=== PATIENT | male | born 1955 | race Caucasian/White ===

== ENCOUNTER 2017-09-04 10:07 | Emergency (ER) | payer BC ==
--- NOTE | 2017-09-04 10:49 | RAD ---
INDICATION: Chest pain. COMPARISON: Comparison is made with a prior chest x-ray study from August 10, 2011. TECHNIQUE: A portable view of the chest was obtained. FINDINGS: Cardiac and mediastinal contours appear to be within normal limits. The lungs are clear. No pleural effusion is seen. IMPRESSION: NO EVIDENCE FOR ACUTE DISEASE.
[2017-09-04 10:58] LABS: ABS Basophils 0.1 10^3/ul (0-0.2); ABS Eosinophils 0.1 10^3/ul (0-0.6); ABS Lymphocytes 1.4 10^3/ul (1.0-4.8); ABS Monocytes 0.5 10^3/ul (0-0.8); ABS Neutrophils 3.9 10^3/ul (1.5-7.7); ABS Nucleated RBC 0 10^3/ul; Eosinophil % 1.9 % (0-6); Hematocrit 44 % (42-52); Lymphocyte % 23.7 % (25-47); Mean Corpuscular HGB Conc 34 g/dl (31-36); Mean Corpuscular Hemoglobin 32 pg (27-31); Mean Corpuscular Volume 95 fL (80-94); Mean Platelet Volume 7.7 um3 (7.4-10.4); Nucleated Red Blood Cells % 0; Platelet Count 198 10^3/ul (150-450); Red Blood Count 4.68 10^6/ul (4.0-5.4); Red Cell Distribution Width 14 % (10.5-15)
[2017-09-04 11:04] LABS: INR 0.86 (0.77-1.02)
[2017-09-04 11:15] LABS: EGFR Non-African American 71.8 (>60)
[2017-09-04 12:30] LABS: Urine Appearance Clear; Urine Blood Negative (Negative); Urine Color Yellow; Urine Ketones Negative (Negative); Urine Protein Negative (Negative); Urine Specific Gravity 1.005 (1.010-1.030); Urine Urobilinogen Negative (Negative)
[2017-09-04 16:27] VITALS: BP 129/74
--- NOTE | 2017-09-06 10:56 | ED ---
Filemon Brito Angela, scribed for Willis Perry MD on 09/04/17 at 1022 . HPI Chest Pain - HPI Summary HPI Summary: This pt is a 61 y/o male presenting to [facility] c/o SOB and chest pain. Pt reports his SOB has become worse over the past few days, he states he has dyspnea from just bending down to tie his shoe laces. Pt notes he becomes SOB with minimal exertion. Denies fever, chills, nausea, vomiting, cough. He is followed up by Dr. Wilkinson. Pt had a stress test on 08/10/17 but he states he was unable to finish it due to chronic knee discomfort, therefore he had a pharmacologic stress test which resulted negative. Pt also had an echocardiogram on 08/17/17. He was sent to the ED today from pulmonary testing for persistent SOB and unclear false negative stress test or false negative D-dimer, per Dr. Wilkinson. Pt is on nitroglycerin patches. PMHx includes MT in 2006 and s/p stent in 2014, osteoarthritis. - History of Current Complaint Chief Complaint: EDChestPainROMI Time Seen by Provider: 09/04/17 10:18 Hx Obtained From: Patient Onset/Duration: Started Days Ago, Still Present Timing: Lasting Days Current Severity: Moderate Pain Intensity: 6 Pain Scale Used: 0-10 Numeric Chest Pain Location: Diffuse Chest Pain Radiates: No Character: Dyspnea at Exertion Aggravating Factor(s): Nothing Alleviating Factor(s): Nothing Associated Signs and Symptoms: Positive: Chest Pain, Shortness of Breath. Negative: Fever, Chills, Nausea, Cough, Vomiting - Allergy/Home Medications Allergies/Adverse Reactions: Allergies Allergy/AdvReac Type Severity Reaction Status Date / Time No Known Allergies Allergy Verified 08/29/17 08:53 Home Medications: Home Medications Aspirin EC TAB* [Ecotrin EC Low Dose 81 MG*] 81 mg PO DAILY 09/04/17 [History Confirmed 09/04/17] Nitroglycerin 0.2 MG/HR PATCH* [Nitroglycerin 5 MG PATCH*] 1 patch TRANSDERM DAILY 09/04/17 [History Confirmed 09/04/17] PMH/Surg Hx/FS Hx/Imm Hx Endocrine/Hematology History: Denies: Hx Diabetes, Hx Thyroid Disease Cardiovascular History: Reports: Hx Myocardial Infarction - in 2007, Other Cardiovascular Problems/Disorders - s/p stent in 2015 Denies: Hx Congestive Heart Failure, Hx Hypertension Respiratory History: Denies: Hx Asthma, Hx Chronic Obstructive Pulmonary Disease (COPD) GI History: Denies: Hx Ulcer History: Denies: Hx Dialysis, Hx Renal Disease - Surgical History Surgery Procedure, Year, and Place: cardiac stent ,back,right wrist,right shoulder, left knee, right hip Infectious Disease History: No Infectious Disease History: Denies: Hx Hepatitis, Hx Human Immunodeficiency Virus (HIV), Traveled Outside the [place] in Last 30 Days - Family History Known Family History: Positive: Cardiac Disease Negative: Hypertension, Diabetes Family History: CA. - Social History Alcohol Use: None Substance Use Type: Reports: None Smoking Status (MU): Never Smoked Tobacco Review of Systems Positive: Fever - low grade Positive: Chest Pain Positive: Shortness Of Breath Musculoskeletal: Negative Skin: Negative Neurological: Negative All Other Systems Reviewed And Are Negative: Yes Physical Exam - Summary Physical Exam Summary: VITAL SIGNS: Reviewed. GENERAL: Patient is a well-developed and nourished male who is lying comfortable in the stretcher. Patient is not in any acute respiratory distress. HEAD AND FACE: No signs of trauma. No ecchymosis, hematomas or skull depressions. No sinus tenderness. EYES: PERRLA, EOMI x 2, No injected conjunctiva, no nystagmus. EARS: Hearing grossly intact. Ear canals and tympanic membranes are within normal limits. MOUTH: Oropharynx within normal limits. NECK: Supple, trachea is midline, no adenopathy, no JVD, no carotid bruit, no c- spine tenderness, neck with full ROM. CHEST: Symmetric, no tenderness at palpation LUNGS: Clear to auscultation bilaterally. No wheezing or crackles. CVS: Regular rate and rhythm, S1 and S2 present, no murmurs or gallops appreciated. ABDOMEN: Soft, non-tender. No signs of distention. No rebound no guarding, and no masses palpated. Bowel sounds are normal. EXTREMITIES: FROM in all major joints, no edema, no cyanosis or clubbing. NEURO: Alert and oriented x 3. No acute neurological deficits. Speech is normal and follows commands. SKIN: Dry and warm Triage Information Reviewed: Yes Vital Signs On Initial Exam: Initial Vitals Temp Pulse Resp BP Pulse Ox 99.1 F 82 17 142/87 97 09/04/17 10:12 09/04/17 10:12 09/04/17 10:12 09/04/17 10:12 09/04/17 10:12 Vital Signs Reviewed: Yes Diagnostics - Vital Signs Vital Signs Temp Pulse Resp BP Pulse Ox 09/04/17 10:12 99.1 F 82 17 142/87 97 - Laboratory Result Diagrams: 09/04/17 10:43 09/04/17 10:43 Lab Statement: Any lab studies that have been ordered have been reviewed, and results considered in the medical decision making process. - Radiology Chest XR Xray Interpretation: No Acute Changes - IMPRESSION: No evidence for acute disease. Dr. Perry has reviewed this radiology report. Radiology Interpretation Completed By: Radiologist - EKG 10:12 Cardiac Rate: NL EKG Rhythm: Sinus Rhythm - at 77 bpm EKG Interpretation: No ST elevations. EKG Comparison: No Significant Change - similar to prior EKG on 08/14/11. 13:15 Cardiac Rate: NL EKG Rhythm: Sinus Rhythm - at 71 bpm Ectopy: PVCs EKG Interpretation: No ST elevations Re-Evaluation - Re-Evaluation First Eval Re-Evaluation Time: 15:07 Comment: I reviewed the lab and XR results with the pt and . We are waiting for Dr. Laboy's call. Second Eval Re-Evaluation Time: 15:42 Comment: I discussed Dr. Laboy's recommendations with the pt and . Pt will be discharged home. Chest Pain Course/Dx - Course Assessment/Plan: This pt is a 61 y/o male presenting to [facility] c/o SOB and chest pain. Pt reports his SOB has become worse over the past few days, he states he has dyspnea from just bending down to tie his shoe laces. Pt notes he becomes SOB with minimal exertion. Denies fever, chills, nausea, vomiting, cough. He is followed up by Dr. Wilkinson. Pt had a stress test on 08/10/17 but he states he was unable to finish it due to chronic knee discomfort, therefore he had a pharmacologic stress test which resulted negative. Pt also had an echocardiogram on 08/17/17. He was sent to the ED today from pulmonary testing for persistent SOB and unclear false negative stress test or false negative D- dimer, per Dr. Wilkinson. Pt is on nitroglycerin patches. PMHx includes MT in 2007 and s/p stent in 2015, osteoarthritis. Test results without any significant abnormalities. Two troponins, 4 hours apart, are both negative. Urinalysis is negative for UTI. Chest XR: No evidence for acute disease. EKG shows normal sinus rhythm without ST elevations. D-dimer is negative therefore I did not order a CTA. I discussed pt care with Dr. Laboy, wardrobe custodian, who agrees to not do a CTA today and for the pt to be discharged home and follow up with Dr. Wilkinson as an outpatient. Therefore he will be discharged to home with follow up from Dr. Wilkinson. I discussed all the findings and test results with the patient. All questions were answered to patient satisfaction. There were no further complaints or concerns. He is instructed to return to the ED for any worsening or new symptoms. Pt is hemodynamically stable, alert and oriented x3. - Diagnoses Provider Diagnoses: Chest pain, Shortness of breath - Provider Notifications Discussed Care Of Patient With: Nilay Laboy Time Discussed With Above Provider: 15:11 Instructed by Provider To: Other - I discussed pt care with Dr. Laboy, wardrobe custodian, who will call back. [15:24] Dr. Laboy reports the pt can be discharged home with outpatient follow up with Dr. Wilkinson. Discharge - Sign-Out/Discharge Documenting (check all that apply): Discharge - discharge to home - Discharge Plan Condition: Stable Disposition: HOME Patient Education Materials: Chest Pain (ED), Shortness of Breath (ED) Referrals: Froilan Wilkinson MD [Medical Doctor] - Aguila LONGORIA,SWATI Rawls [Primary Care Provider] - Additional Instructions: Please follow up with Dr. Wilkinson. RETURN TO THE ED FOR ANY NEW OR WORSENING SYMPTOMS. The documentation as recorded by the Filemon parikh Angela accurately reflects the service I personally performed and the decisions made by , Willis Perry MD.
== END 2017-09-04 16:26 | disposition home or self-care (01) ==
LOC: ED 10:07
DX: R07.89 Other chest pain (principal); R06.02 Shortness of breath; R50.9 Fever, unspecified; I25.2 Old myocardial infarction; Z95.5 Presence of coronary angioplasty implant and graft; Z79.82 Long term (current) use of aspirin
CPT/HCPCS: 36415; 71045; 80053; 81003; 82550; 82553; 83605; 83735; 83880; 84443; 84484; 85025; 85379; 85610; 85730; 93005; 99283

== ENCOUNTER → 2017-12-18 08:12 | Day surgery (SDC) | payer OTHER ==
[~2017-12-18 08:12] MED LIST: Heparin 2 UNITS/ML IVPREMIX* 1,000 ML IV ONE; Heparin 2 UNITS/ML IVPREMIX* 2,000 ML IV ONE; Heparin(*) 1000 UNIT/ML 10 ML VIAL CATH LAB IV ONE; Iohexol 350 (CONTRAST) 200 ML MDV IV ONE; Lidocaine 1% INJ* 10 MG/ML 30 ML SDV ONE; Midazolam* 1 MG/ML 10 ML VIAL (10 MG) ONE; Midazolam* 1 MG/ML 5 ML VIAL (5 MG) ONE; NS 0.9% 1000 ML* 1,000 ML IV SCH; VERAPAMIL 2.5 MG/ML 2 ML VIAL ** 5 mg/2 ml ONE; fentaNYL* 50 MCG/ML 2 ML VIAL (100 MCG VIAL) ONE; nitroGLYCERIN DRIP* 25,000 MCG/250 ML BTL ONE
[2017-12-18 14:10] VITALS: BP 125/83
--- NOTE | 2017-12-19 00:37 | CATH ---
CC: Dr. Jean; Dr. Wilkinson; Dr. Bhat * CARDIAC CATHETERIZATION REPORT: DATE OF CATHETERIZATION: 12/18/17 - [facility] CATH PRIMARY CARE PHYSICIAN: Dr. Jean. HORSERADISH MAKER: Dr. Wilkinson. SPOOL CLEANER HAND: Dr. Bhat. PROCEDURES: Right radial artery access, right heart catheterization via the right antecubital, bilateral selective coronary cineangiography, left heart catheterization, and left ventriculography. HISTORY: A 62-year-old obese male with chronic lung disease, recent limiting exertional dyspnea with negative cardiac noninvasive testing. He has a history of remote diagonal branch stenting in [place]. He is referred for coronary angiography as he has persisted with progressive dyspnea, functional class 2-3 in spite of treatment for his lung disease, with discrepancy between his functional capacity and his noninvasive testing. Right heart catheterization was planned to rule out pulmonary hypertension. PROCEDURE ACCESS: Right radial artery sheath 6F slender. The hydrophilic microwire was used to exchange the right antecubital IV for a 5-Turkish sheath, which was then used to perform right heart catheterization. DIAGNOSTIC CATHETER: 5F [place], 5F TIG4, 5F pigtail. Resting pressures with normal arterial saturation in the 90s, RA mean 17, RV 35/ 14- 17, wedge mean 20, PA 36/21, mean 27. There was no mitral valve gradient with ensuring good wedge recording. LVEDP was 19-20. ANGIOGRAPHY: There is scattered calcification of the left coronary system. Left main: The left main has no stenosis. LAD: The LAD has minor luminal irregularity, supplies a moderate first diagonal , which has a previously implanted stent, which is widely patent. The LAD has no stenosis. This extends to the apex. Circumflex: The circumflex is moderate, nondominant with a single marginal branch. The circumflex has no stenosis. RCA: The RCA is dominant, moderate, supplies a moderate PDA and larger posterolateral. It has no significant stenosis. LV gram: LV systolic function is normal, there is no mitral regurgitation. Estimated LVEF 55%. CONCLUSION: 1. No obstructive coronary artery disease, patent diagonal branch, prior stent. 2. Normal LV systolic function. 3. Mild pulmonary venous hypertension with hemodynamics consistent with diastolic heart failure. He will be started on diuresis. He is encouraged to use his nighttime oxygen, which he apparently has been lax about doing. Successful right radial artery access. [id number]/[facility] #: [id number] [facility]
== END | disposition home or self-care (01) ==
LOC: CHICATH 08:12
PROVIDERS: ATTEND Internal Medicine Cardiovascular Disease
DX: R06.09 Other forms of dyspnea (principal); I25.10 Atherosclerotic heart disease of native coronary artery without angina pectoris; I25.2 Old myocardial infarction; R07.9 Chest pain, unspecified; Z95.5 Presence of coronary angioplasty implant and graft; I27.20 Pulmonary hypertension, unspecified; I50.30 Unspecified diastolic (congestive) heart failure; I10 Essential (primary) hypertension; J44.9 Chronic obstructive pulmonary disease, unspecified; G47.33 Obstructive sleep apnea (adult) (pediatric); R00.2 Palpitations
CPT/HCPCS: 93005; 93460; 99156; 99157; C1887; J1644; J2250; J3010

== ENCOUNTER 2018-02-08 13:07 | Day surgery (SDC) | payer MEDICAID, OTHER ==
[~2018-02-08 13:07] MED LIST changes: +Buffered Lidocaine 0.9% SYRIN* 5 ML/SYR SYRINGE INTRADERM ONE; +Famotidine IV* 10 MG/ML 2 ML (20 mg) IV ONE; -Heparin 2 UNITS/ML IVPREMIX* 1,000 ML IV ONE; -Heparin 2 UNITS/ML IVPREMIX* 2,000 ML IV ONE; -Heparin(*) 1000 UNIT/ML 10 ML VIAL CATH LAB IV ONE; -Iohexol 350 (CONTRAST) 200 ML MDV IV ONE; -Lidocaine 1% INJ* 10 MG/ML 30 ML SDV ONE; -Midazolam* 1 MG/ML 10 ML VIAL (10 MG) ONE; -Midazolam* 1 MG/ML 5 ML VIAL (5 MG) ONE; -NS 0.9% 1000 ML* 1,000 ML IV SCH; -VERAPAMIL 2.5 MG/ML 2 ML VIAL ** 5 mg/2 ml ONE; -fentaNYL* 50 MCG/ML 2 ML VIAL (100 MCG VIAL) ONE; -nitroGLYCERIN DRIP* 25,000 MCG/250 ML BTL ONE
[2018-02-08] MEDS ORDERED: ceFAZolin 2 GM in NS PREMIX(*) 2 GM/100 ML BAG IVPB ONE (13:12)
[2018-02-08] MEDS ORDERED: Famotidine IV* 10 MG/ML 2 ML (20 mg) ONE (13:18)
[2018-02-08] MEDS ORDERED: Midazolam* 1 MG/ML 5 ML VIAL (5 MG) ONE (16:55)
[2018-02-08] MEDS ORDERED: KETAMINE HCL* 50 MG/ML 10 ML VIAL ONE (16:55)
[2018-02-08] MEDS ORDERED: fentaNYL* 50 MCG/ML 2 ML VIAL (100 MCG VIAL) ONE (16:55)
[2018-02-08] MEDS ORDERED: oxyCODONE TAB* 5 MG TAB PO PRN (16:57)
[2018-02-08] MEDS ORDERED: Levalbuterol 0.63MG/3ML NEB* UNIT OF USE INH PRN (16:57)
[2018-02-08] MEDS ORDERED: Naloxone* 0.4 MG/ML 1 ML VIAL IV PRN (16:57)
[2018-02-08] MEDS ORDERED: HYDROmorphone INJ1* 1 MG/ML SYRINGE IV PRN (16:57)
[2018-02-08] MEDS ORDERED: Acetaminophen TAB* 325 MG PO PRN (16:57)
[2018-02-08] MEDS ORDERED: DiMENhydriNATE IV* 50 MG/ML VIAL IV PUSH PRN (16:57)
[2018-02-08] MEDS ORDERED: Bupivacaine 0.25% EPI 200,000* 30 ML SDV ONE (18:46)
[2018-02-08] MEDS ORDERED: Propofol* 10 MG/ML 20 ML BTL IV PUSH ONE (19:41)
[2018-02-08 20:47] VITALS: BP 155/84
--- NOTE | 2018-02-09 07:11 | RAD ---
INDICATION: Removal of hardware left knee intraoperative guidance. COMPARISON: Comparison is made with a prior x-ray study of the left knee from August 01, 2017. TECHNIQUE: 6.7 seconds of intermittent fluoroscopic guidance were provided and 2 spot films of the left knee were obtained in the operating room. FINDINGS: The films demonstrate interval removal of a surgical screw which was present in the lateral metaphysis of the femur. IMPRESSION: INTRAOPERATIVE CONTROL FILMS. CPT II Codes: G9500
--- NOTE | 2018-02-10 22:23 | OP ---
OPERATIVE NOTE: DATE OF OPERATION: 02/08/18 DATE OF : 55 SURGEON: Ryland Tomas MD POLYSOMNOGRAPHIC TECHNOLOGIST: DANA Stearns A physician operator assistant i cementing was required for the length of the procedure for assistance with the patient po sitioning, retraction, and closure. This was deeper than your standard removal of hardware procedure , procedure that is of not reimbursed, but this did require an operator assistant i cementing more than most of these proc edures. ANESTHESIOLOGIST: Dr. Blanca Vincent. ANESTHESIA: Monitored anesthesia care with sedation as well as local anesthetic, 20 cc of 0.25% Ponce tess with epinephrine prior to the start of the procedure and approximately 10 cc of the same anesthe tic during the procedure. PRE-OP DIAGNOSES: 1. Left knee painful hardware. 2. Left iliotibial band tendonitis. POST-OP DIAGNOSES: 1. Left knee painful hardware. 2. Left iliotibial band tendonitis. OPERATIVE PROCEDURE: Removal of hardware, deep, left knee. INDICATIONS FOR PROCEDURE: The patient is a 62-year-old man with a history of left knee ACL reconstr uction in 1989, whom I have seen in clinic for left knee pain and osteoarthritis, but also has had si gnificant pain about the iliotibial band and lateral condyle laterally. On exam, he had clear tender ness to palpation about the screw head, which was palpable. It was noted on x-ray imaging to be very . It was unclear if it was deep or superficial to the iliotibial band, but there was clear surround ing iliotibial band tendonitis. I discussed risks and potential complications to surgery including bleeding, infection, nerve or bloo d vessel injury, hardware breakage, failure in resolution of pain. ANTIBIOTICS: Ancef 2 g IV. IV FLUIDS: 1000 cc crystalloid. TOURNIQUET TIME: Zero minutes. [id number] TIME: 24 minutes. RADIATION: Mini C-arm was used for 7 seconds and 0.002 mGy meter squared of exposure. SPECIMEN: One screw, partially threaded, 6.5 mm in diameter with a washer. IMPLANTS: None. COMPLICATIONS: None. ESTIMATED BLOOD LOSS: Minimal. DESCRIPTION OF PROCEDURE: The patient signed a written consent in preoperative holding. Operative e xtremity was marked in the preoperative holding. The patient was taken back to the operating room an d placed supine on operating room table. The patient was sedated. A mini time-out was performed. Lo susie anesthetic consisting of 20 cc of 0.25% Marcaine with epinephrine were injected into the area abo ve the planned incision site and just proximal to that. Tourniquet was placed around the left thigh, but was never inflated. Bumps were placed under the left hemipelvis. Left lower extremity was prep ped and draped. Formal surgical time- out. I palpated the location of the screw head. I made a longitudinal incision in the prior surgical inci cristiano scar. I exchanged knives and incised through the subcutaneous tissue. I visualized the iliotib ial band. It was fully intact, overlying the screw head, with the exception of a longitudinal tear i n it. I extended this tear proximally and distally and then retracted the iliotibial band anteriorly and posteriorly. I was able to localize the screw head. The screw was 6.5 mm in size. I removed i t with a screw armored car driver. I also removed a washer that clearly had both metallic and plastic components to it. Filling down into the wound, there were some sharp textured areas still deep to the iliotibial band. I feared that this would continue to cause iliotibial band tendonitis and pain even with the hardwar e out. I had first time thought these were sharp spikes of bone. A dissection revealed the fact jayson t were permanent suture ends. I removed these with rongeur. I palpated and surface the lateral cond yle was then smooth underlying the iliotibial band. I used a curette, small to debride the tract of the former bone screw. I performed irrigation. Closure of the iliotibial band with a running stitch using Vicryl 0 suture. Closure of the subcutaneo us tissue with buried simple stitches using Vicryl 2-0 suture. Closure of the skin with yeimi. During the procedure, as I was dissecting around the screw head prior to it is being removed, the pat ient was able to feel pain. Therefore, I put some additional local anesthetic approximately 10 cc of 0.25% Marcaine with epinephrine. With the skin closed with yeimi, I next placed Xeroform, 4x4s, ABD, sterile Webril, and then an Donnie bandage about the knee. The patient was lightened of sedation and taken to the PACU. The patient was discharged home when medically stable. The patient was given wound care instructions . The patient was given a limited quantity of Percocet, 10 tablets to take as needed for pain postop eratively. He will follow up with me in clinic 10 to 14 days postoperatively for a wound check. [id number]/[facility] #: [id number]
== END 2018-02-08 21:00 | disposition home or self-care (01) ==
LOC: OR 13:07
PROVIDERS: ATTEND Orthopaedic Surgery
DX: T84.84XA Pain due to internal orthopedic prosthetic devices, implants and grafts, initial encounter (principal); Y83.1 Surgical operation with implant of artificial internal device as the cause of abnormal reaction of the patient, or of later complication, without mention of misadventure at the time of the procedure; M76.32 Iliotibial band syndrome, left leg; I25.10 Atherosclerotic heart disease of native coronary artery without angina pectoris; Z95.5 Presence of coronary angioplasty implant and graft; I42.9 Cardiomyopathy, unspecified; J44.9 Chronic obstructive pulmonary disease, unspecified; G47.33 Obstructive sleep apnea (adult) (pediatric); M19.90 Unspecified osteoarthritis, unspecified site
CPT/HCPCS: 76000; 88300; J0690; J2250; J2704; J3010

== ENCOUNTER 2018-08-06 17:43 | Inpatient (IN) | payer OTHER ==
[2018-08-06] MEDS ORDERED: Diltiazem IV* 5 MG/ML 5 ML VIAL (for loading dose/IV Push) (25 MG) IV SLOW PU ONE (17:57)
--- NOTE | 2018-08-06 18:04 | ED ---
HPI Chest Pain - HPI Summary HPI Summary: Patient is a 62 y/o male who presents to the ED c/o CP. At 15:00 he suddenly had SOB and chest pressure. Patient notes hes had milder intermittent episodes of this the past few days. He rates his current pain as a 10/10 in severity, and is both mid-sternal and epigastric. Patient recently saw his heel layer who said his heart is in good condition. He had 162 mg ASA today. PMHx CAD, COPD , CT. He is a former smoker. - History of Current Complaint Chief Complaint: EDChestPainROMI Time Seen by Provider: 08/06/18 17:57 Hx Obtained From: Patient Onset/Duration: Started Hours Ago - 15:00 today, Started Days Ago - 2-3 days, Still Present Timing: Intermittent Current Severity: Severe Pain Intensity: 10 Pain Scale Used: 0-10 Numeric Chest Pain Location: Mid Sternal - and epigastric Character: Pressure/Squeezing Aggravating Factor(s): Nothing Alleviating Factor(s): Nothing Associated Signs and Symptoms: Positive: Chest Pain, Shortness of Breath Related History: Similar Episode/Dx as: - hx CT - Allergy/Home Medications Allergies/Adverse Reactions: Allergies Allergy/AdvReac Type Severity Reaction Status Date / Time No Known Allergies Allergy Verified 02/08/18 13:27 Home Medications: Home Medications Atorvastatin* 40 mg PO DAILY 08/06/18 [History Confirmed 08/06/18] Benzonatate 100 mg PO Q4H PRN 08/06/18 [History Confirmed 08/06/18] Fluticasone-Salmeterol 250-50* 250 mg PO BID 08/06/18 [History Confirmed ] Lisinopril 5 mg PO DAILY 08/06/18 [History Confirmed 08/06/18] Sertraline HCl 100 mg PO DAILY 08/06/18 [History Confirmed 08/06/18] Spiriva Inhaler DEVICE* 125 mcg PO BID 08/06/18 [History Confirmed 08/06/18] PMH/Surg Hx/FS Hx/Imm Hx Endocrine/Hematology History: Denies: Hx Diabetes, Hx Thyroid Disease Cardiovascular History: Reports: Hx Angina, Hx Cardiomegaly - ramos of heart are [id number]-not expanding and deb, Hx Coronary Artery Disease - 1 Cardiac Stent 2014, Hx Myocardial Infarction - in 2007, Other Cardiovascular Problems/Disorders - s/p stent in 2014 Denies: Hx Congestive Heart Failure, Hx Hypertension Respiratory History: Reports: Hx Chronic Obstructive Pulmonary Disease (COPD), Hx Sleep Apnea - mild, Other Respiratory Problems/Disorders - states Dr Bhat said his lungs were deteriorating Denies: Hx Asthma GI History: Denies: Hx Ulcer History: Denies: Hx Dialysis, Hx Renal Disease, Other Problems/Disorders Musculoskeletal History: Reports: Hx Arthritis - Osteoarthritis-knees,lower back ,hips Comment Only: Other Musculoskeletal History - Right Hip Replacement, hardware in left knee Sensory History: Denies: Hx Contacts or Glasses, Hx Hearing Aid Opthamlomology History: Denies: Hx Contacts or Glasses Neurological History: Denies: Other Neuro Impairments/Disorders - Surgical History Surgery Procedure, Year, and Place: cardiac stent ,back,right wrist,right shoulder, left knee, right hip Hx Anesthesia Reactions: No Infectious Disease History: No Infectious Disease History: Denies: Hx Hepatitis, Hx Human Immunodeficiency Virus (HIV), Traveled Outside the [place] in Last 30 Days - Family History Known Family History: Positive: Cardiac Disease Negative: Hypertension, Diabetes Family History: CA. - Social History Alcohol Use: None Alcohol Amount: 4-5 beers with ibuprofen Hx Substance Use: No Substance Use Type: Reports: None Hx Tobacco Use: Yes Smoking Status (MU): Former Smoker Type: Cigarettes Amount Used/How Often: 10 years 1/2 PPD Have You Smoked in the Last Year: No Review of Systems Positive: Chest Pain - pressure Positive: Shortness Of Breath All Other Systems Reviewed And Are Negative: Yes Physical Exam - Summary Physical Exam Summary: Constitutional: Well-developed, Well-nourished, Alert. Appears uncomfortable Skin: Warm, Dry HENT: Normocephalic; Atraumatic Eyes: Conjunctiva normal Neck: Musculoskeletal ROM normal neck. (-) JVD, (-) Stridor, (-) Tracheal deviation Cardio: Rhythm regular, rate tachycardic, Heart sounds normal; Intact distal pulses; The pedal pulses are 2+ and symmetric. Radial pulses are 2+ and symmetric. (-) Murmur Pulmonary/Chest wall: Effort normal. (-) Respiratory distress, (-) Wheezes, (-) Rales Abd: Soft, (-) tenderness, (-) Distension, (-) Guarding, (-) Rebound Musculoskeletal: (-) Edema Lymph: (-) Cervical adenopathy Neuro: Alert, Oriented x3 Psych: Mood and affect Normal Triage Information Reviewed: Yes Vital Signs On Initial Exam: Initial Vitals Temp Pulse Resp BP Pulse Ox 97.3 F 158 30 73/55 97 08/06/18 17:46 08/06/18 17:46 08/06/18 17:46 08/06/18 17:46 08/06/18 17:46 Vital Signs Reviewed: Yes Diagnostics - Vital Signs Vital Signs Temp Pulse Resp BP Pulse Ox 08/06/18 17:46 97.3 F 158 30 73/55 97 - Laboratory Result Diagrams: 08/06/18 17:50 08/06/18 17:50 Lab Statement: Any lab studies that have been ordered have been reviewed, and results considered in the medical decision making process. - Radiology CXR Radiology Interpretation Completed By: ED Physician Summary of Radiographic Findings: No acute disease. Pending official radiology report. - EKG 17:54 Cardiac Rate: Other Rate - AFib - 197 bpm EKG Rhythm: Atrial Fibrillation Summary of EKG Findings: Borderline prolonged QRS, normal QTc, RAD, ST depression in V2-V6, normal T-waves, AFib with RVR, rate-related ischemia. 18:08 Cardiac Rate: Other Rate - AFib - 134 bpm EKG Rhythm: Atrial Fibrillation ST Segment: Normal EKG Comparison: Other - Improvement in ischemic changes compared to earlier EKG. Summary of EKG Findings: Prolonged QRS, prolonged QTc, RBBB, normal ST, normal T -waves. Re-Evaluation - Re-Evaluation First Eval Re-Evaluation Time: 18:00 Change: Improved Comment: Pt feels much better after Cardizem. Second Eval Re-Evaluation Time: 18:40 Change: Improved Comment: Pt's BP is now elevating. Chest Pain Course/Dx - Course Course Of Treatment: Patient is a 62 y/o male who presents to the ED c/o suddenly onset SOB and chest pressure. A physical exam revealed uncomfortable appearing and tachycardic. An EKG at 17:54 revealed AFib at a rate of 197 bpm, Borderline prolonged QRS, normal QTc, RAD, ST depression in V2-V6, normal T- waves, AFib with RVR, rate-related ischemia. Patient felt much better after Cardizem. An EKG at 18:08 revealed AFIb at a rate of 134 bpm, Prolonged QRS, prolonged QTc, RBBB, normal ST, normal T-waves, and improvement in ischemic changes. A CXR was negative, as read by me. In the course patient was given Cardizem, Diltiazem, and Heparin drip. Bloodwork revealed a lactic acid of 3.2. Spoke to Dr. Metzger who suggested cardizem drip and agreed with admission to the hospitalist service. Final dx are AFib with RVR and hypotension. Dr. Lott accepted the patient for admission. He is agreeable with this plan. - Diagnoses Provider Diagnoses: Atrial fibrillation with rapid ventricular response, Hypotension - Provider Notifications Discussed Care Of Patient With: Otto Metzger Time Discussed With Above Provider: 18:36 Instructed by Provider To: Other - Dr. Metzger suggests admission. At 18:57 Dr. Lott accepts for admission. At 19:20 Dr. Metzger said the pt is back into sinus rhythm. - Critical Care Time Critical Care Time: 30-74 min - for life threatening condition, frequent exams, multiple consultants, vasoactive medications Discharge - Sign-Out/Discharge Documenting (check all that apply): Patient Departure - Admit Patient Received Moderate/Deep Sedation with Procedure: No - Discharge Plan Condition: Stable Disposition: ADMITTED TO [facility] - Billing Disposition and Condition Condition: STABLE Disposition: Admitted to [facility] - Attestation Statements Document Initiated by Adriannae: Yes Documenting Scribe: Fanta Lopez Provider For Whom Scribe is Documenting (Include Credential): Jackie Moses MD Scribe Attestation: Fanta Brito, scribed for Jackie Matson MD on 08/06/18 at 2214. Scribe Documentation Reviewed: Yes Provider Attestation: The documentation as recorded by the Fanta parikh accurately reflects the service I personally performed and the decisions made by me, Jackie Moses MD Status of Scribe Document: Viewed
[2018-08-06 18:12] LABS: ABS Basophils 0.1 10^3/ul (0-0.2); ABS Eosinophils 0.1 10^3/ul (0-0.6); ABS Monocytes 0.9 10^3/ul (0-0.8); ABS Neutrophils 6.6 10^3/ul (1.5-7.7); ABS Nucleated RBC 0 10^3/ul; Eosinophil % 0.9 %; Hematocrit 45 % (42-52); Hemoglobin 15.5 g/dl (14.0-18.0); Mean Corpuscular HGB Conc 34 g/dl (31-36); Mean Corpuscular Hemoglobin 34 pg (27-31); Mean Corpuscular Volume 98 fL (80-94); Mean Platelet Volume 7.8 fL (7.4-10.4); Nucleated Red Blood Cells % 0.2; Platelet Count 238 10^3/ul (150-450); Red Blood Count 4.59 10^6/ul (4.00-5.40); Red Cell Distribution Width 14 % (10.5-15); White Blood Count 9.7 10^3/ul (3.5-10.8)
[2018-08-06 18:20] LABS: INR 0.86 (0.77-1.02)
[2018-08-06 18:32] LABS: Albumin 4.5 g/dL (3.2-5.2); BUN/Creatinine Ratio 12.9 (8-20); Calcium 8.9 mg/dL (8.6-10.3); EGFR African American 62.1 (>60); EGFR Non-African American 51.4 (>60); Globulin 2.3 g/dL (2-4); Magnesium 2.6 mg/dL (1.9-2.7); Potassium 3.4 mmol/L (3.5-5.0); Total Bilirubin 0.5 mg/dL (0.2-1.0); Total Protein 6.8 g/dL (6.4-8.9)
[2018-08-06 18:33] LABS: Troponin I 0.03 ng/mL (<0.04)
[2018-08-06] MEDS ORDERED: Midazolam* 1 MG/ML 5 ML VIAL (5 MG) ONE (18:41)
[2018-08-06] MEDS ORDERED: Flumazenil* 0.1 MG/ML 5 ML MDV ONE (18:42)
[2018-08-06] MEDS ORDERED: fentaNYL* 50 MCG/ML 2 ML VIAL (100 MCG VIAL) ONE (18:42)
[2018-08-06] MEDS ORDERED: Naloxone* 0.4 MG/ML 1 ML VIAL ONE (18:42)
[2018-08-06] MEDS: Diltiazem IV VIAL* 125 MG in NS 0.9% 100 ML* 100 ML IVPB ONE ×2 (18:50→19:32)
[2018-08-06 18:52] LABS: TSH (Thyroid Stimulating Horm) 4.91 mcIU/mL (0.34-5.60)
[2018-08-06] MEDS ORDERED: Heparin DRIP 25,000 UNITS(*) 25,000 UNITS/500 ML BAG ONE (19:00)
[2018-08-06] MEDS ORDERED: Heparin VIAL(*) 5000 UNITS/ML VIAL (FIVE THOUSAND) ONE (19:00)
[2018-08-06] MEDS: Heparin DRIP 25,000 UNITS(*) 25,000 UNITS/500 ML BAG IV SCH (19:06)
[2018-08-06] MEDS ORDERED: Potassium Chloride LIQUID* 20 MEQ PACKET PO ONE (19:21)
[2018-08-06] MEDS ORDERED: Digoxin IV* 0.5 MG/2 ML AMP (0.25 MG/ML) IV SLOW PU ONE (19:45)
--- NOTE | 2018-08-06 20:32 | CONS ---
CC: Dr. Jean CARDIOLOGY CONSULTATION NOTE: DATE OF CONSULT: 08/06/18 REFERRAL PHYSICIAN: Dr. Rodrigez. REASON FOR CONSULTATION: Rapid atrial fibrillation with hypotension. HISTORY OF PRESENT ILLNESS: I was called to see the patient urgently in the emergency room because of concern for rapid atrial fibrillation and hypotension. The patient has apparently been having questionable palpitations with chest discomfort for the past few days. Today, he came to the emergency room after having developed rapid palpitations while lying in his bed and was found to have rapid atrial fibrillation. Initially, he was felt to be hypotensive. He did receive some Cardizem with reasonable effect and his heart rate came down. I was called because there was concern that the patient's heart rate had again climbed to 170 BPM with a systolic blood pressure of 68 mm Hg. On my arrival, the patient was lying comfortably flat and mentating adequately. When I rechecked his blood pressure manually, it was 122/72 with a pulse of 160. We then began him on intravenous Cardizem and he has received that with good effect. The patient states that his chest discomfort, which previously had been as high as 8/10 in terms of intensity is now 2/10 in the midsternal region. Interestingly he does not feels palpitations at this time despite being in atrial fibrillation with HR of 120 BPM. PAST MEDICAL HISTORY: Significant for coronary artery disease and he has had a stent placed in the diagonal branch, I believe drug-eluting several years ago. He had a cardiac catheterization completed on 12/18/17, which showed patent diagonal branch stent, but no obstructive coronary artery disease, normal left ventricular function. At that time, he had been encouraged to use his nighttime oxygen, which he had been lax in using. He also has a history of hypertension, COPD, right wrist fusion, right shoulder surgery. MEDICATIONS: Current medication list is pending. Medications in orthopedic documentation in December 2017 reported: 1. Norvasc. 2. Aspirin 81 mg once a day. 3. Lasix. 4. Ibuprofen. 5. Nebulizer. 6. Symbicort. 7. Inhalers. ALLERGIES: To medications are none. SOCIAL HISTORY: The patient apparently quit smoking 11 years ago. He lives with his fiancee. He drinks 2-3 beers per day and almost a pot of black coffee per day. FAMILY HISTORY non contributory. ROS negative other than as noted above. PHYSICAL EXAM: His blood pressure is now 112/64, pulse is 120 BPM. He does look to be fairly comfortable lying down, but is quite tachycardic on the monitor. HEENT shows cranium is normocephalic and atraumatic. He has dry mucosal membranes. Neck veins are not distended. There are no carotid bruits. Visible skin warm and perfused. Affect appropriate. He appears oriented. Grossly, no significant kyphoscoliosis on back exam. Lungs are clear to auscultation. No wheezes, no rales. Cardiac Exam: S1, S2. Irregular rate, tachycardic. No significant murmurs, rubs, or gallops. PMI is nondisplaced. Abdomen: Soft, nondistended, appears benign. Extremities with no more than trivial peripheral edema. Pulses appear grossly intact. DIAGNOSTIC STUDIES/LAB DATA: The patient had a 12-lead EKG completed on at 1808, which shows atrial fibrillation at 134 beats per minute. Sodium 138, potassium 3.4, chloride 100, bicarbonate 23, BUN 18 and creatinine 1.4, it previously had been 1.18 on 05/07/18. INR 0.86. White blood cell count 9.7, hematocrit 45, platelet count 238. IMPRESSION: Mr. Forde is a 62-year-old gentleman with a history of hypertension , severe COPD and coronary artery disease post PCI in the psat, now with rapid atrial fibrillation since at least since 3 PM today. He had prior factitious hypotension noted on the automatic BP cuff due to rapid heart rate but his blood pressure is intact when checked manually. His heart rate seems better controlled on the Cardizem drip. Thus far, GA has been ruled out with a negative troponin. If he is persistently tachycardic despite maximization of cardizem gtt, recommend addition of digoxin. RECOMMENDATIONS: 1. We will continue Cardizem gtt. Recommend NOAC given CHADS2-VAScF score of at least 2. If he is persistently tachycardic, recommend addition of digoxin. 2. 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 The patient states that he had been on Metoprolol previously which was stopped because of initial concern it was adversely affecting his breathing , but his breathing did not improve off the Metoprolol so I think Metoprolol can be restarted once he is off the Cardizem gtt, watching for wheezing which he does not have now. 2. Recommend he avoid all alcohol and caffeine. 3. Recommend repleting potassium to keep his serum potassium level 4 to 5. 4. Plan tentatively for transesophageal echocardiogram guided cardioversion tomorrow if atrial fibrillation persists as he may have been having PAF over the few days by his history. 5. Further recommendations to follow pending clinical response to ongoing management. Thank you for this Cardiology consultation and we look forward to following the patient with you. Please call me if questions. The above was discussed with Dr. Rodrigez of [facility], the emergency room nursing staff and the patient and his fiancee. [id number]/[facility] #: [id number] [place]
[2018-08-06] MEDS ORDERED: Acetaminophen TAB* 325 MG PO PRN (20:49)
[2018-08-06] MEDS ORDERED: Metoprolol Tartrate TAB* 25 MG PO SCH (21:00)
[2018-08-06] MEDS ORDERED: Metoprolol Tartrate TAB* 25 MG PO ONE (21:00)
[2018-08-06 21:13] LABS: Troponin I 0.22 ng/mL (<0.04)
[2018-08-06 21:59] LABS: Activated Partial Thrombo Time 30.8 seconds (26.0-36.3)
[2018-08-06] MEDS ORDERED: Heparin VIAL(*) 5000 UNITS/ML VIAL (FIVE THOUSAND) IV SCH (22:00)
[2018-08-06 23:49] LABS: Troponin I 0.52 ng/mL (<0.04)
[2018-08-06] MEDS: Atorvastatin* 40 MG TAB PO SCH (23:49)
--- NOTE | 2018-08-07 00:49 | HP ---
CC: Dr. Silverio; Dr. Wilkinson * HISTORY AND PHYSICAL: DATE OF ADMISSION: 08/06/18 PROVIDER: Maria Luz Johnson NP PRIMARY CARE PROVIDER: Dr. Silverio. ATTENDING PHYSICIAN WHILE IN THE HOSPITAL: Dr. Cecily Eaton * (dictated by Maria Luz Johnson NP) CHIEF COMPLAINT: 1. New onset rapid atrial fibrillation. 2. Shortness of breath/chest pain. HISTORY OF PRESENT ILLNESS: Mr. Forde is a 62-year-old male with a past medical history significant for non-STEMI in 2015, COPD, CAD, hypertrophic cardiomyopathy, who presented to the emergency room with shortness of breath and chest pain that started approximately 2:45 this afternoon. The patient reports that his heart felt like it was racing and he developed pain on the left side of his chest. He reports that he was very short of breath with wheezing and had severe coughing at that time, so he presented to the emergency room for further evaluation. The patient reports that he gets these episodes of heart racing, severe coughing and wheezing approximately every 3 to 4 days x past 3 months. He does report that he has been followed by Dr. Bhat from Pulmonology as well as Dr. Wilkinson. He reports that he had a cardiac catheterization last November; at that time, there was no disease and no stenting was needed. On presentation to the emergency room, the patient was found to have heart rate in 150s to 160s. He was given a Cardizem bolus and started on a Cardizem drip and subsequently converted to sinus rhythm in the 80s. After the Cardizem, he was slightly hypotensive on arrival to the emergency room with blood pressures in 70s and 80s, which resolved with conversion to sinus rhythm and slower heart rate. He was seen in the emergency room by Dr. Metzger from Cardiology who started him on a heparin drip as well as a Cardizem drip. Upon my evaluation in the emergency room, the patient is feeling better. His shortness of breath has resolved, his chest pain has resolved and his heart rate is now sinus rhythm in the 80s. PAST MEDICAL HISTORY: Significant for: 1. Non-STEMI in 2014. 2. COPD. 3. CAD. 4. Hypertrophic cardiomyopathy. PAST SURGICAL HISTORY: 1. Right hip replacement. 2. Right shoulder surgery. 3. Left knee surgery. 4. Right wrist fusion. 5. Back surgery. 6. Tonsillectomy. HOME MEDICATIONS: Include: 1. Fluticasone/salmeterol 250/50 twice daily. 2. Benzonatate 100 mg p.o. q.4 hours as needed. 3. Spiriva inhaler 125 mcg p.o. b.i.d. 4. Sertraline 100 mg p.o. daily. 5. Lisinopril 5 mg p.o. daily. 6. Atorvastatin 40 mg p.o. daily. 7. Aspirin 81 mg p.o. daily. ALLERGIES: No known drug allergies. FAMILY HISTORY: Significant for cancer, myocardial infarction, and hypertension. SOCIAL HISTORY: He is retired. He is a former smoker. Quit smoking approximately 11 years ago. Prior to that, he smoked half-a-pack a day for approximately 8 to 9 years. He reports he drinks 2 to 3 beers nightly. He denies any illicit drug use. He is . Surrogate decision-maker in the event he is unable to make his own decisions is his friend, Alyssa. He is a full code. REVIEW OF SYSTEMS: There has been no documented fever, no intended weight loss. He did report chest pain, cough, and shortness of breath. Denied any hemoptysis or edema. Denies any nausea, vomiting, diarrhea, or abdominal pain. Denies any gross hematuria, dysuria, focal weakness or sensory loss. Denies any visual complaints, dysphagia, arthralgias, myalgias, rashes, lesions or open sores. Denies any psychosis or anxiety. PHYSICAL EXAMINATION GENERAL: At this time, Mr. Forde is a 62-year-old male. He is alert and oriented, sitting on a stretcher in the emergency room. He is in no acute distress. He is a well-developed, well-nourished male. HEENT: Head is atraumatic, normocephalic. Eyes: EOMs are intact. Sclerae anicteric and not pale. Oral mucosa appeared to be moist. NECK: Supple. LUNGS: Clear to auscultation bilaterally. There are no wheezes, rales, or rhonchi. CARDIAC: S1, S2. Regular rate and rhythm. No murmurs, rubs, or gallops. ABDOMEN: Soft and nontender. Bowel sounds are present x4. EXTREMITIES: Pedal pulses are +2 bilaterally. He is able to move all 4 extremities with 5/5 strength. NEUROLOGIC: He is awake, alert, oriented x3. Speech is clear. Thought process is intact. There are no gross focal deficits. SKIN: Intact. DIAGNOSTIC STUDIES/LAB DATA: WBCs are 9.7, RBCs 4.59, hemoglobin 15.5, hematocrit was 45, platelet count was 237. INR is 0.86. D-dimer was less than 200. APTT was 30.8. Sodium 138, potassium 3.4, chloride 100, carbon dioxide was 23, anion gap was 15, BUN was 18, creatinine 1.40, lactic acid was 3.2, calcium was 8.9, magnesium 2.6. Bilirubin was 0.50. ASTs were 17, ALTs were 20 , alkaline phosphatase was 49. Troponin was 0.03 and 0.22. BNP 118. TSH was 0.91. Initial electrocardiogram showed atrial fibrillation at a rate of 197. Repeat EKG at 2018 showed sinus rhythm at a rate of 80. There is some ST elevation noted in lead II and aVF. ASSESSMENT AND PLAN: Mr. Forde is a 62-year-old male with past medical history significant for non-ST elevation myocardial infarction in 2014, chronic obstructive pulmonary disease, coronary artery disease, hypertrophic cardiomyopathy, who presented to the emergency room with palpitations, chest pain, and shortness of breath, found to be in rapid atrial fibrillation. He will be admitted under observation for: 1. Rapid atrial fibrillation. The patient was found to be in rapid atrial fibrillation in the emergency room. He was given a Cardizem bolus and started on a Cardizem drip. Cardizem drip was peaked at 15 mg per hour, which he subsequently converted to sinus rhythm and his drip was decreased to 10 mg. I did give him 25 mg of metoprolol, and we will stop the drip after 1 hour post metoprolol. The patient is currently on a heparin drip. We will use this for anticoagulation. The patient should be converted over to NOAC when able, as it does sound like the patient has a 3-month history of intermittent possible atrial fibrillation as he says these episodes occur every 3 to 4 days. We will continue to replace his potassium to a level between 4 and 5. The patient has a CHADS-VASc score of 2 making him a high risk for thromboembolism. He has a HAS-BLED score of 2, giving him a 1.88% major bleeding risk. The patient was seen and consulted by Cardiology who has made recommendations. 2. Chronic obstructive pulmonary disease. He should continue on Spiriva Respimat and fluticasone as previously prescribed. 3. Coronary artery disease. The patient will continue on aspirin 81 mg p.o. daily. I will also start him on metoprolol this evening. 4. Hypertension. He will continue on lisinopril 5 mg p.o. daily. 5. Hyperlipidemia. He will continue on atorvastatin 40 mg p.o. daily. 6. Hypokalemia. The patient had a potassium level of 3.4 on arrival. He was given 40 mEq of potassium in the emergency room. We will repeat a BMP in the a.m. 7. Elevated troponin. I suspect his elevation in troponin is related to demand ischemia from his tachycardia. We will continue to trend his troponins and repeat an EKG in the morning. 8. FEN. He can have a heart healthy, no caffeine diet. 9. Code status. He is full code. 10. DVT prophylaxis. He is currently on a heparin drip. TIME SPENT: Time spent on this admission was 60 minutes; greater than half that time was spent [id number] with the patient obtaining my history and physical; the other half of the time was spent going over my plan of care with the patient and implementing my plan of care. I have discussed this with my attending, Dr. Cecily Eaton; she is in agreement with my plan. MARIA LUZ JOHNSON, SWATI [id number]/[facility] #: [id number] [place]
[2018-08-07 07:11] LABS: ABS Basophils 0 10^3/ul (0-0.2); ABS Eosinophils 0.1 10^3/ul (0-0.6); ABS Lymphocytes 1.3 10^3/ul (1.0-4.8); ABS Monocytes 0.6 10^3/ul (0-0.8); ABS Neutrophils 4.4 10^3/ul (1.5-7.7); ABS Nucleated RBC 0 10^3/ul; Hematocrit 41 % (42-52); Hemoglobin 14.1 g/dl (14.0-18.0); Lymphocyte % 20.4 %; Mean Corpuscular HGB Conc 35 g/dl (31-36); Mean Corpuscular Hemoglobin 34 pg (27-31); Mean Corpuscular Volume 98 fL (80-94); Mean Platelet Volume 7.5 fL (7.4-10.4); Nucleated Red Blood Cells % 0.1; Platelet Count 171 10^3/ul (150-450); Red Blood Count 4.18 10^6/ul (4.00-5.40); Red Cell Distribution Width 14 % (10.5-15); White Blood Count 6.5 10^3/ul (3.5-10.8)
[2018-08-07 07:27] LABS: Calcium 8.3 mg/dL (8.6-10.3); EGFR African American 91.6 (>60); EGFR Non-African American 75.7 (>60); Potassium 4.2 mmol/L (3.5-5.0)
[2018-08-07] MEDS ORDERED: Perflutren Lipid Microsphere* 3 ML VIAL ONE (07:59)
[2018-08-07] MEDS: Metoprolol Tartrate TAB* 25 MG PO SCH ×2 (08:49→20:37)
[2018-08-07] MEDS: Sertraline* 100 MG TAB PO SCH (08:49)
[2018-08-07] MEDS: Atorvastatin* 40 MG TAB PO SCH (08:49)
[2018-08-07] MEDS: Lisinopril TAB* 5 MG PO SCH (08:49)
[2018-08-07] MEDS: Aspirin EC TAB* 81 MG TAB.EC PO SCH (08:49)
[2018-08-07] MEDS ORDERED: Spiriva Inhaler DEVICE* 1 EACH DEVICE INH ONE (09:00)
[2018-08-07] MEDS ORDERED: Tiotropium CAP.INH* CAP.INH/18 MCG (USE ORDER SET !) INH SCH (09:00)
[2018-08-07] MEDS ORDERED: TIOTROPIUM PO SCH (09:00)
[2018-08-07 09:27] LABS: Troponin I 0.24 ng/mL (<0.04)
--- NOTE | 2018-08-07 11:51 | ECHO ---
Patient: TIERRA MUNOZ [facility] Rec#: [id number] : 1955 Date: 08/06/2018 Age: 62y Height: 180 cm / 70.9 in Weight: 103 kg / 227.0 lbs Sex: M BSA: 2.22 Room#: [facility] Admit Date#: 08/06/2018 Type: Inpatient Referring: Maria Luz Johnson Reading: Bhavna Che MD Yard Jockey: Bety Berry ALDO CC: Ted MCGINNIS,[facility] Transthoracic Echocardiogram Indication: Abn EKG BP: 101/70 HR: 95 Rhythm: NSR Findings History: New a-fib,NSTEMI 2014 with PCI,COPD,? hypertrophic CM.Definity used to enhance images. Technical Comments: The study is technically difficult. Definity used to enhance images. The study is technically limited due to the patient's history of COPD. Completed at 0815. Left Ventricle: The left ventricular chamber size is normal. Mild concentric left ventricular hypertrophy is observed. There is normal left ventricular systolic function. The estimated ejection fraction is 55-60%. There is no consistent Doppler evidence of clinically significant diastolic dysfunction. Left Atrium: The left atrial chamber size is normal. Right Ventricle: The right ventricular cavity size is normal. The right ventricular global systolic function is low normal.no subcostal views. Right Atrium: The right atrial cavity size is normal. Aortic Valve: The aortic valve structure is not well visualized. Systolic excursion of the aortic valve is normal. There is no evidence of aortic valve sclerosis or stenosis. There is a trace of aortic regurgitation. Mitral Valve: The mitral valve leaflets are mildly thickened. There is no evidence of mitral regurgitation. There is no evidence of mitral stenosis. Tricuspid Valve: The tricuspid valve leaflets are normal. There is no evidence of tricuspid valve regurgitation. Unable to estimate the right ventricular systolic pressure. There is no tricuspid stenosis. Pulmonic Valve: The pulmonic valve structure is not well visualized. Pericardium: The pericardium appears normal. Aorta: The ascending aorta is not well visualized. There is no dilatation of the aortic arch. There is no dilation of the aortic root. Pulmonary Artery: The main pulmonary artery is not well visualized. Venous: The venous system is not well visualized. Contrast: Definity was used to optimize study. Intravenous contrast was used to enhance endocardial border definition. Conclusions Mild concentric left ventricular hypertrophy is observed. There is normal left ventricular systolic function. The estimated ejection fraction is 55-60%. The right ventricular global systolic function is low normal.no subcostal views. There is a trace of aortic regurgitation. All valves show good excursion and normal function. Compared with prior echo of 04/01/18, EF is stable, RV function stable, AI is stable, no longer see dilatation of the ascending aorta. Measurements Name Value Normal Range RVIDd (AP) 2D 2.9 cm (0.9 - 2.6) RVDdMajor (2D) 2.5 cm (2.2 - 4.4) RAd ISD 4CH 4.7 cm (3.4 - 4.9) RA (A4C)W 3.4 cm (2.9 - 4.6) IVSd (2D) 1.1 cm (0.6 - 1) LVPWd (2D) 1.2 cm (0.6 - 1) LVIDd (2D) 4.5 cm (3.6 - 5.4) LVIDs (2D) 2.6 cm - LV FS (2D) 42 % (25 - 45) Aortic Annulus 2 cm (1.4 - 2.6) Ao root diameter (2D) 3 cm (2.1 - 3.5) Aortic arch 2.9 cm (1.8 - 3.4) Descending Ao 0.4 cm - LA dimension (AP) 2D 3 cm (2.3 - 3.8) LAd ISD 4CH 5.4 cm (2.9 - 5.3) LA ISD 4CH W 3.1 cm (2.5 - 4.5) Name Value Normal Range LA ESV SP 4CH (A/L) 13 ml - LA ESV SP 2CH (A/L) 24 ml - LA ESV BP (A/L) index 18 ml/m2 - Name Value Normal Range MV E-wave Vmax 0.7 m/sec - MV deceleration time 162 msec - MV A-wave Vmax 0.6 m/sec - MV E:A ratio 1.1 ratio - LV septal e' Vmax 0.08 m/sec - LV lateral e' Vmax 0.07 m/sec - LV E:e' septal ratio 8.75 ratio - LV E:e' lateral ratio 10 ratio - Name Value Normal Range AV Vmax 1.3 m/sec - AV VTI 29.7 cm - AV peak gradient 6 mmHg - AV mean gradient 4 mmHg - LVOT Vmax 1 m/sec - LVOT VTI 20.8 cm - LVOT peak gradient 4 mmHg - LVOT mean gradient 2 mmHg - AR PHT 376 msec - Name Value Normal Range PV Vmax 0.4 m/sec - PV peak gradient 1 mmHg -
[2018-08-07] MEDS: Fluticasone-Salmeterol 250-50* DISKUS INH SCH (12:52)
[2018-08-07 13:06] LABS: Troponin I 0.21 ng/mL (<0.04)
--- NOTE | 2018-08-07 14:26 | PN ---
Subjective Date of Service: 08/07/18 Interval History: Pt is feeling well today. He states that he started to feel bad yesterday, stating he had chest pressure, shortness of breath. He states that he chewed an aspirin and tried his CPAP both with no relief. He states that he had pain relief with bending forward and breathing. Pt states that he has these attacks intermittently for approximately 1 year, but that this was the worst so far. Pt states he had a stress test in [place] approximately 1 month ago, and prior to that, his last one was in August,. Pt states that, in the past, he used nitro patches, but his provider discontinued them. He has no home nitro. Pt states that associated symptoms last night were chest pressure, shortness of breath, palpitations, dizziness, lightheadedness. Pt denies all of these symptoms today. Also denies cough, fever, abd pain, pain in LE. Pt does admit to epigastric pain on occasion. Objective Active Medications: Acetaminophen (Tylenol Tab*) 650 mg PO Q4H PRN Aspirin (Aspirin Ec Tab*) 81 mg PO QAM JASON Atorvastatin Calcium (Lipitor*) 40 mg PO DAILY [facility] Heparin Sodium (Porcine) (Heparin Vial(*)) 0 units IV .PER PROTOCOL [facility] Heparin Sodium/Dextrose (Heparin Drip 25,000 Units(*)) 25,000 units in 500 mls @ 0 mls/hr IV PER RATE JASON; Protocol Lisinopril (Prinivil Tab*) 5 mg PO DAILY [facility] Metoprolol Tartrate (Lopressor Tab*) 25 mg PO Q12HR [facility] Fluticasone/Salmeterol (Advair Diskus 250-50*) 1 puff INH BID JASON Sertraline HCl (Zoloft*) 100 mg PO DAILY J[facility] Tiotropium [place] (Spiriva Cap.Inh*) 1 cap INH DAILY [facility] Vital Signs: Temp Pulse Resp BP Pulse Ox 97.9 F 61 18 112/66 98 08/07/18 08:20 08/07/18 11:28 08/07/18 11:28 08/07/18 08:20 08/07/18 11:28 Oxygen Devices in Use Now: None Appearance: Pt is sitting up in bed. He appears well and in no acute distress. Eyes: No Scleral Icterus, PERRLA Ears/Nose/Mouth/Throat: NL Teeth, Lips, Gums, Clear Oropharnyx, Mucous Membranes Moist Neck: NL Appearance and Movements; NL JVP, Trachea Midline Respiratory: Symmetrical Chest Expansion and Respiratory Effort, Clear to Auscultation Cardiovascular: NL Sounds; No Murmurs; No JVD, RRR, - - Heart sounds distant Abdominal: NL Sounds; No Tenderness; No Distention, No Hepatosplenomegaly Extremities: No Clubbing, Cyanosis, - - Trace edema to b/l LE Neurological: Alert and Oriented x 3 Result Diagrams: 08/07/18 06:58 08/07/18 06:58 Assess/Plan/Problems-Billing Assessment: Pt is a 62yom with PMHx NSTEMI 2015, COPD, CAD, hypertrophic cardiomyopathy who presents with new onset atrial fibrillation. - Patient Problems (1) Atrial fibrillation Comment: -CHADS2-VASc 2, HAS-BLED 2; discussed use of anticoagulation, and pt agreed to DOAC. Will d/c with Eliquis 5mg PO BID -Pt converted to NSR -Continue metoprolol 25 q12h (2) Elevated troponin Comment: -Trended and showed slight elevation, and are now trending down -Likely result of atrial fibrillation -Will repeat stress test tomorrow; unable to get results of most recent stress test (3) Coronary artery disease Comment: -Requested last stress test -ASA, atorvastatin (4) Hypertension Comment: -WNL -Continue lisinopril (5) COPD (chronic obstructive pulmonary disease) Comment: -Not in acute exacerbation -Continue inhalers (6) Hyperlipidemia Comment: -Continue atorvastatin (7) Hypokalemia Comment: -Resolved -K 4.2 (8) DVT prophylaxis Comment: -Pt on heparin drip (9) Full code status Status and Disposition: Observation. Discharge when stable.
[2018-08-07 15:31] LABS: Troponin I 0.17 ng/mL (<0.04)
[2018-08-07] MEDS: Heparin DRIP 25,000 UNITS(*) 25,000 UNITS/500 ML BAG IV SCH (15:34)
--- NOTE | 2018-08-07 17:07 | PN ---
Subjective Date of Service: 08/07/18 - CC: chest pain, racing heart. Interval History: The patient arrived in afib and cardioverted early this AM on cardizem gtt. No chest pain out of atrial fibrillation. He feels at prior baseline. The patient has been using his CPAP. He drinks 2-3 beers/evening and the symptoms of CP and palps occurred after drinking beer last night. The patient reports he had a stress test at [place] last month, has an appointment with a new shoe repairer at [place] tomorrow. Medications Active Medications: Acetaminophen (Tylenol Tab*) 650 mg PO Q4H PRN PRN Reason: FEVER/PAIN Aspirin (Aspirin Ec Tab*) 81 mg PO QAM [facility] Last Admin: 08/07/18 08:49 Dose: 81 mg Atorvastatin Calcium (Lipitor*) 40 mg PO DAILY [facility] Last Admin: 08/07/18 08:49 Dose: 40 mg Heparin Sodium (Porcine) (Heparin Vial(*)) 0 units IV .PER PROTOCOL [facility] Last Admin: 08/07/18 15:33 Dose: 3,600 units Heparin Sodium/Dextrose (Heparin Drip 25,000 Units(*)) 25,000 units in 500 mls @ 0 mls/hr IV PER RATE [facility]; Protocol Last Admin: 08/07/18 15:34 Dose: 25 mls/hr Lisinopril (Prinivil Tab*) 5 mg PO DAILY [facility] Last Admin: 08/07/18 08:49 Dose: 5 mg Metoprolol Tartrate (Lopressor Tab*) 25 mg PO Q12HR [facility] Last Admin: 08/07/18 08:49 Dose: 25 mg Fluticasone/Salmeterol (Advair Diskus 250-50*) 1 puff INH BID [facility] Last Admin: 08/07/18 12:52 Dose: Not Given Sertraline HCl (Zoloft*) 100 mg PO DAILY [facility] Last Admin: 08/07/18 08:49 Dose: 100 mg Tiotropium [place] (Spiriva Cap.Inh*) 1 cap INH DAILY [facility] Last Admin: 08/07/18 11:26 Dose: 1 cap Objective Vital Signs: Temp Pulse Resp BP Pulse Ox 98.2 F 72 14 128/69 96 08/07/18 15:25 08/07/18 15:25 08/07/18 15:25 08/07/18 15:25 08/07/18 15:25 Oxygen Devices in Use Now: None Appearance: overweight, lying at 15 degrees, comfortable. Eyes: No Scleral Icterus, PERRLA Ears/Nose/Mouth/Throat: Mucous Membranes Moist Neck: NL Appearance and Movements; NL JVP, Trachea Midline Respiratory: Symmetrical Chest Expansion and Respiratory Effort, Clear to Auscultation - distant. Cardiovascular: NL Sounds; No Murmurs; No JVD, RRR Abdominal: NL Sounds; No Tenderness; No Distention, - - rotund, centripetal obeisity. Extremities: No Edema, No Clubbing, Cyanosis Skin: No Rash or Ulcers Neurological: Alert and Oriented x 3 Laboratory Results: 08/07/18 06:58 08/07/18 06:58 INR (Anticoag Therapy) 0.86 (0.77-1.02) 08/06/18 17:50 APTT 43.4 seconds (26.0-36.3) H 08/07/18 14:45 Total Bilirubin 0.50 mg/dL (0.2-1.0) 08/06/18 17:50 AST 17 U/L (13-39) 08/06/18 17:50 ALT 20 U/L (7-52) 08/06/18 17:50 Alkaline Phosphatase 49 U/L (34-104) 08/06/18 17:50 B-Natriuretic Peptide 118 pg/mL (<=100) H 08/06/18 17:50 Total Protein 6.8 g/dL (6.4-8.9) 08/06/18 17:50 Albumin 4.5 g/dL (3.2-5.2) 08/06/18 17:50 Globulin 2.3 g/dL (2-4) 08/06/18 17:50 Albumin/Globulin Ratio 2.0 (1-3) 08/06/18 17:50 TSH 4.91 mcIU/mL (0.34-5.60) 08/06/18 17:50 08/06/18 08/06/18 08/06/18 17:50 20:46 23:21 Troponin I 0.03 0.22 H* 0.52 H* 08/07/18 08/07/18 08/07/18 08:59 12:18 14:45 Troponin I 0.24 H* 0.21 H* 0.17 H* Diagnostic Imaging: ECHO 08/07/18: Normal LV wall motion and contractility. RV hypokinesis. EKG Data: Tele: NSR ECG 08/06/18 20.00: NSR 80 bpm. Assessment/Plan 62 yo male who developed CP acutely with palpitations, arrived in ED with afib, RVR, rate controlled and the spontaneously cardioverted. CP free in normal sinus rhythm. Mild elevation in troponins, known CAD with distant stent to 2014 ( [place]). Cath November 2017 unremarkable. PAF: Continue metoprolol. Initiate anticoagulation/NOAC Stop the beer (patient agreed to this). Keep potassium level 4-5 (low in ED). I discussed relationship of afib with age, alcohol, pulmonary disease, MARTHA. May need antiarrhythmic in the future, defer to his new shoe repairer. CAD: Trops could be due to CAD but more likely demand ischemia as recent ischemic evals done. No records available from [facility] at this point. after discussion with hospitalist and patient, pt missed appointment with new shoe repairer today. Will plan on exercise myoview in AM. I would minimize NSAIDs, optimize diet/lifestyle. RV hypokinesis: Likely mild cor pulmonale, sees Dr Leroy for COPD and MARTHA. Cardiac MRI was ordered in the past by Dr Wilkinson, not completed that I am aware of. Follow up with [facility].
[2018-08-08 04:39] LABS: ABS Basophils 0.1 10^3/ul (0-0.2); ABS Eosinophils 0.2 10^3/ul (0-0.6); ABS Lymphocytes 1.2 10^3/ul (1.0-4.8); ABS Monocytes 0.5 10^3/ul (0-0.8); ABS Neutrophils 4.4 10^3/ul (1.5-7.7); ABS Nucleated RBC 0 10^3/ul; Eosinophil % 2.7 %; Hematocrit 41 % (42-52); Hemoglobin 14.1 g/dl (14.0-18.0); Mean Corpuscular HGB Conc 35 g/dl (31-36); Mean Corpuscular Hemoglobin 33 pg (27-31); Mean Corpuscular Volume 96 fL (80-94); Mean Platelet Volume 7.5 fL (7.4-10.4); Nucleated Red Blood Cells % 0.1; Platelet Count 168 10^3/ul (150-450); Red Blood Count 4.23 10^6/ul (4.00-5.40); Red Cell Distribution Width 14 % (10.5-15); White Blood Count 6.3 10^3/ul (3.5-10.8)
[2018-08-08 05:00] LABS: Anion Gap 6 mmol/L (2-11); BUN/Creatinine Ratio 13.5 (8-20); Blood Urea Nitrogen 14 mg/dL (6-24); CO2 Carbon Dioxide 26 mmol/L (22-32); Calcium 8.5 mg/dL (8.6-10.3); Chloride 105 mmol/L (101-111); EGFR African American 87.6 (>60); EGFR Non-African American 72.4 (>60); Glucose 93 mg/dL (70-100); Sodium 137 mmol/L (135-145)
[2018-08-08] MEDS: Fluticasone-Salmeterol 250-50* DISKUS INH SCH (06:11)
[2018-08-08 07:45] VITALS: BP 112/68
[2018-08-08] MEDS: Sertraline* 100 MG TAB PO SCH (07:45)
[2018-08-08] MEDS: Atorvastatin* 40 MG TAB PO SCH (07:45)
[2018-08-08] MEDS: Lisinopril TAB* 5 MG PO SCH (07:45)
[2018-08-08] MEDS: Aspirin EC TAB* 81 MG TAB.EC PO SCH (07:45)
[2018-08-08] MEDS: Metoprolol Tartrate TAB* 25 MG PO SCH (07:45)
[2018-08-08] MEDS ORDERED: Regadenoson* 0.4 MG/5 ML SYRINGE ONE (09:13)
--- NOTE | 2018-08-08 23:54 | DS ---
DISCHARGE SUMMARY: DATE OF ADMISSION: 08/06/18 DATE OF DISCHARGE: 08/08/18 PRIMARY CARE PROVIDER: Dr. Silverio. CORRECTIONS SPECIALIST: Dr. Wilkinson. ATTENDING PHYSICIAN: Dr. Post * (dictated by DANA Gu). PRIMARY DIAGNOSIS: New onset rapid atrial fibrillation. SECONDARY DIAGNOSES: 1. Chronic obstructive pulmonary disease. 2. Coronary artery disease. 3. N-STEMI in 2015. 4. Hypertrophic cardiomyopathy. STUDIES WHILE IN THE HOSPITAL: Chest x-ray 08/06/18, impression: Stigmata of obstructive lung disease. No acute pulmonary or cardiac process evident. Transthoracic echocardiogram 08/06/18, conclusion: Mild concentric left ventricular hypertrophy is observed. There is normal left ventricular systolic function. The estimated ejection fraction is 55% to 60%. The right ventricular global systolic function is low normal. No subcostal views. There is a trace of aortic regurgitation. All valves show good excursion and normal function compared with prior echo of 04/01/18, EF is stable, RV function stable , AI is stable, no longer see dilation of the ascending aorta. Nuclear medicine scan 08/08/18, impression: Limited exam due to absence of CT for attenuation correction, probable diaphragmatic attenuation artifact at the inferior wall. No compelling evidence for stress-induced ischemia. Normal range estimated left ventricular ejection fraction. Suggestion of mild hypokinesis at the anterior wall. Assessment: Low risk based on nuclear portion. DISCHARGE MEDICATIONS: Home medications: 1. Fluticasone/salmeterol 250/50 twice daily. 2. Benzonatate 100 mg p.o. q.4 hours as needed. 3. Spiriva inhaler 125 mcg inhalation b.i.d. 4. Sertraline HCl 100 mg p.o. daily. 5. Lisinopril 5 mg p.o. daily. 6. Atorvastatin 40 mg p.o. daily. 7. Aspirin 81 mg p.o. q.a.m. New home medications: 1. Metoprolol tartrate 25 mg p.o. q.12 hours. 2. Apixaban 5 mg p.o. b.i.d. HISTORY OF PRESENT ILLNESS/HOSPITAL COURSE: Mr. Forde is a 62-year-old male with a past medical history as described above, who presented to the ER on 08/06 with complaints of palpitations and left-sided chest pain. He states that associated symptoms include shortness of breath, wheezing, and severe coughing. He states that he has episodes where his heart feels like it is racing every 3 to 4 days for the past approximately 3 months. He is followed by Pulmonology , Dr. Bhat; and Cardiology, Dr. Wilkinson. He does report that he has a new float tender that he will be seeing in the next 2 weeks. He states that his last cardiac catheterization was in November, last echo is unknown, and the last stress test was approximately 1 year ago. Upon presentation to the ER, the patient was tachycardic in the 150s to 160s. Cardizem bolus followed by Cardizem drip was started and the patient converted to sinus rhythm with rate in the 80s. Dr. Metzger saw the patient in the ER and started him on a heparin drip. He was then admitted for a cardiac workup. The patient has a CHADS-VASc score of 2 and a HAS-BLED score of 2. Anticoagulation was discussed with the patient, and he decided to start anticoagulation. Apixaban was ordered for outpatient. It is noted that the patient had elevated troponins throughout his stay. They trended upwards at first, reaching a peak of 0.52 and then they started to trend downwards. Due to results of echo and stress test, it is reasonable to suspect atrial fibrillation as the cause for his elevated troponins. Throughout the patient's stay, he denied feelings of palpitation. He also remained in normal sinus rhythm throughout his stay. He experienced no shortness of breath or wheezing. It is noted that he had COPD, but was not in exacerbation throughout his stay. Upon discharge, his heparin drip was discontinued and he was instructed to start Apixaban upon picking it up from the pharmacy. On the day of discharge , Mr. Forde denied complaints of chest pain, shortness of breath, cough, or fever. He denied palpitations. He denied headache or blurred vision. He denied abdominal complaints or concerns with the upper or lower extremities. Mr. Forde is stable for discharge. PHYSICAL EXAMINATION: Vital signs are temperature 98.0 oral, heart rate 75, respiratory rate 18, oxygen saturation 95%, blood pressure 112/65. General: Mr. Forde is a well-developed, well-nourished obese man who is sitting up in bed. He is in no acute distress. HEENT: Visual holman are grossly intact. His pupils are equally round and reactive to light. His extraocular movements are intact. The sclerae is without icterus. Hearing is grossly intact. Oral mucous membranes are moist and without lesions. The pharynx is clear. Neck with full range of motion. Thyroid not palpable. Trachea at midline. There is no cervical lymphadenopathy. Cardiovascular: Regular rate and rhythm. S1, S2 present. There are no murmurs, rubs, or gallops. There is no JVD. Respiratory: Symmetrical chest expansion with no use of accessory muscles. Lungs are clear to auscultation. There is no rhonchi, wheezes, or rubs. Abdomen : Bowel sounds in all 4 quadrants. The abdomen is soft and nontender to palpation. There is no hepatosplenomegaly. Musculoskeletal: Full range of motion with no pain or deformities. Extremities: Skin is warm and smooth bilaterally. There is trace edema to both lower extremities. There is no clubbing or cyanosis. Radial and pedal pulses are 2+ bilaterally. Neuro: The patient is awake. He is alert and oriented x3. Cranial nerves are grossly intact. He is able to move all of his extremities. He has a steady gait with no impairment. DISCHARGE PLAN: Mr. Forde will be discharged home. ACTIVITY: As tolerated. DIET: Heart healthy, no alcohol, no caffeine. This was stressed to the patient. MEDICATIONS: As above. Start Eliquis right after discharge and take every 12 hours. Resume metoprolol 25 tonight (approximately 2100) and take every 12 hours. FOLLOWUP: 1. Follow up with Cardiology as scheduled on 08/22/18. Discussed recent stress test and echo results. 2. Followup with primary care physician in 4 to 7 days. 3. Return to the ER or nearest hospital if he experiences any worsening of symptoms, shortness of breath, lightheadedness, dizziness, chest discomfort, high fevers, chills, night sweats, loss of consciousness, or any other worrisome signs or symptoms. This is a summarized report of a complex medical history and hospital stay. For further details, please see the entire medical record. TIME SPENT: Approximately 40 minutes were spent on this discharge, greater than half that time was spent [id number] with the patient discussing discharge plans and instructions. RIKI STALEY, DANA [id number]/[facility] #: [id number] [place]
== END 2018-08-08 12:39 | disposition home or self-care (01) | DRG 201 ==
LOC: ED 17:43 → MEDTELE 20:49 → OBSVTOIN 08-07 16:10
PROVIDERS: ADMIT Hospitalist; ATTEND Internal Medicine
PROC: 4A12XM4 Monitoring of Cardiac Stress, External Approach (ICD-10-PCS; principal; 2018-08-08)
DX: I48.91 Unspecified atrial fibrillation (principal); J44.9 Chronic obstructive pulmonary disease, unspecified; I25.10 Atherosclerotic heart disease of native coronary artery without angina pectoris; I42.2 Other hypertrophic cardiomyopathy; I10 Essential (primary) hypertension; E78.5 Hyperlipidemia, unspecified; E87.6 Hypokalemia; G47.30 Sleep apnea, unspecified; M17.0 Bilateral primary osteoarthritis of knee; Z96.641 Presence of right artificial hip joint; M16.12 Unilateral primary osteoarthritis, left hip; E66.9 Obesity, unspecified; M46.90 Unspecified inflammatory spondylopathy, site unspecified; I45.10 Unspecified right bundle-branch block; I35.1 Nonrheumatic aortic (valve) insufficiency; Z79.82 Long term (current) use of aspirin; Z79.01 Long term (current) use of anticoagulants; I25.2 Old myocardial infarction; Z68.32 Body mass index [BMI] 32.0-32.9, adult; Z82.49 Family history of ischemic heart disease and other diseases of the circulatory system; Z80.9 Family history of malignant neoplasm, unspecified; Z87.891 Personal history of nicotine dependence; Z98.1 Arthrodesis status; Z95.5 Presence of coronary angioplasty implant and graft
CPT/HCPCS: 36415; 71045; 78452; 80048; 80053; 83605; 83735; 83880; 84443; 84484; 85025; 85379; 85610; 85730; 93005; 93017; 93306; 93351; 94640; 99284; A9270-GY; A9502; C8929; G0378; J1644; J2250; J2310; J2785; J3010